=== PATIENT | female | born 1990 | race Caucasian/White ===

== ENCOUNTER 2016-10-03 04:09 | Emergency (ER) | payer OTHER ==
--- NOTE | 2016-10-03 06:21 | EDDOCDS ---
Physician Documentation [facility] Name: Barbara Almaraz Age: 26 yrs Sex: Female : 1990 Arrival Date: 10/03/2016 Time: 04:09 Bed [facility] Private MD: Duane Donovan Disposition: 10/03/16 05:31 Discharged to Home/Self Care. Impression: Acute stress reaction. - Condition is Stable. - Discharge Instructions: Helping Someone Who is Suicidal, Panic Attacks, Self-Destructive Behavior, Anger Management, Panic Attacks, [id number]. - Medication Reconciliation, Local Pharmacy Hours form. - Follow up: Duane Donovan; When: Call to arrange an appointment; Reason: Continuance of care. - Problem is an acute exacerbation. - Symptoms have improved. Historical: - Allergies: No known drug Allergies; - Home Meds: 1. Ambien 5 mg Oral tab nightly 2. Humalog 100 unit/mL Sub-Q soln sliding scale with meals 3. Lantus 100 unit/mL Sub-Q soln 25 units nightly 4. Xanax 0.5 mg Oral tab 1 tab four times a day - PMHx: Anxiety; Depression; Diabetes - IDDM: uncontrolled; Panic Attacks; - PSHx: ; - Social history: Smoking status: Patient states was never smoker of tobacco. No barriers to communication noted, The patient speaks fluent Belgian, Speaks appropriately for age. - Family history: Not pertinent. - : The pt / caregiver states he / she is not on anticoagulants. Home medication list is obtained from the patient. - Exposure Risk Screening:: None identified. SPOT WASHER: 10/03 04:15 LMP N/A - control method rw1 Vital Signs: 04:15 BP 155 / 104; Pulse 113; Resp 20; Temp 98.1(TE); Pulse Ox 98% on R/A; Weight 61.23 kg / rw1 134.99 lbs (R); Height 5 ft. 1 in. (154.94 cm) (R); Pain 0/10; 05:33 BP 146 / 87; Pulse 94; Resp 18; Temp 97.6(TE); Pulse Ox 98% on R/A; Pain 0/10; rw1 04:15 Body Mass Index 25.51 (61.23 kg, 154.94 cm) rw1 MDM: 05:12 Consult: Terrazzo Worker Helper ordered. mm11 06:08 Financial registration complete. hs2 06:14 [facility] Payment Agreement was scanned into [employer] and attached to record. hs2 Signatures: Jorge Lassiter LPN LPN rw1 Hector Lanier DO DO mm11 Landy Romero RN RN ko2 Hilaria Maurice, Reg Reg hs2 The chart was reviewed and I authenticate all verbal orders and agree with the evaluation and treatment provided.Attachments: 06:14 [facility] Payment Agreement hs2 MTDD
--- NOTE | 2016-10-03 06:21 | EDDOCDS ---
Nurse's Notes [facility] Name: Barbara Almaraz Age: 26 yrs Sex: Female : 1990 Arrival Date: 10/03/2016 Time: 04:09 Bed [facility] Private MD: Duane Donovan Diagnosis: Acute stress reaction Presentation: 10/03 04:21 Presenting complaint: Patient states: her is currently in the field for the ko2 last week and they took his phone and she can't contact him. She is feeling very overwhelmed with court for her daughter, her grandmother is dying in the hospital and lost their house so she was in an panic. When she was at [facility] she says they asked her if she was suicidal and she said no but sometimes she wishes it was all over and they said she was suicidal. Pt states she would never hurt herself shes just overwhelmed. Mental Health Triage Level: Level 1- Pt displays no suicidal or homicidal ideations and does not appear to be a danger to self or others. Adult Sepsis Screening: The patient does not have new or worsening altered mentation. Patient's respiratory rate is less than 22. Systolic blood pressure is greater than 100. Patient has a qSOFA score of 0- Negative Sepsis Screen. Suicide/Homicide risk assessment- the patient denies having any suicidal and/or homicidal ideations and does not present with any other emotional, behavioral or mental health complaints. Status: The patient is a dependent. Transition of care: patient was not received from another setting of care. Care prior to arrival: See EMS report. 04:21 Acuity: FATIMAH Level 3 ko2 04:21 Method Of Arrival: Ambulance ko2 Triage Assessment: 04:28 General: Appears distressed, Behavior is anxious, cooperative. Pain: Denies pain. HIV ko2 screening NA for this visit Offered previously. The patient is triaged at the bedside. See Assessment in Nurses Notes section of ED record. Neurological: Level of Consciousness is awake, alert. Respiratory: No deficits noted. Breath sounds are clear bilaterally. Derm: Skin is normal. 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 Ambien 5 mg Oral tab nightly 2. Humalog 100 unit/mL Sub-Q soln sliding scale with meals 3. Lantus 100 unit/mL Sub-Q soln 25 units nightly 4. Xanax 0.5 mg Oral tab 1 tab four times a day - PMHx: Anxiety; Depression; Diabetes - IDDM: uncontrolled; Panic Attacks; - PSHx: ; - Social history: Smoking status: Patient states was never smoker of tobacco. No barriers to communication noted, The patient speaks fluent Congolese, Speaks appropriately for age. - Family history: Not pertinent. - : The pt / caregiver states he / she is not on anticoagulants. Home medication list is obtained from the patient. - Exposure Risk Screening:: None identified. Screenin:28 Screening information is obtained from the patient. Fall risk: No risks identified. ko2 Assistance ADL's: requires no assistance with activities of daily living. Abuse/DV Screen: The patient / caregiver reports he/she is: not in a situation that causes fear, pain or injury. Nutritional screening: No deficits noted. Advance Directives: Currently, there is no health care proxy. There is no active DNR order. There is no living will. There is no Power of Radio Machinist. home support is adequate. Assessment: 04:16 General: Appears distressed, Behavior is anxious, cooperative, pleasant, restless. rw1 Pain: Denies pain. Neurological: Level of Consciousness is awake, alert, obeys commands, Oriented to person, place, time. Respiratory: Airway is patent Respiratory effort is even, unlabored. Derm: Skin is pink, warm & dry. normal. 05:17 Reassessment: Patient appears in no apparent distress at this time. talking with PSA at rw1 this time, safety maintained will monitor.. 05:33 Reassessment: Patient appears in no apparent distress at this time. Patient denies pain rw1 at this time. Patient states feeling better. Patient states symptoms have improved. Vital Signs: 04:15 BP 155 / 104; Pulse 113; Resp 20; Temp 98.1(TE); Pulse Ox 98% on R/A; Weight 61.23 kg rw1 (R); Height 5 ft. 1 in. (154.94 cm) (R); Pain 0/10; 05:33 BP 146 / 87; Pulse 94; Resp 18; Temp 97.6(TE); Pulse Ox 98% on R/A; Pain 0/10; rw1 04:15 Body Mass Index 25.51 (61.23 kg, 154.94 cm) rw1 Vitals: 04:15 Log In Time N/A - ambulance arrival. rw1 ED Course: 04:09 Patient visited by Merline Smith, Plain Goods Hemmer. ml3 04:[address] [facility] ml3 04:10 Duane Donovan is Private Physician. ml3 04:10 Patient moved to [facility] ml3 04:15 Jorge Lassiter LPN is Primary Nurse. rw1 04:17 Patient visited by Rai Noble. tr 04:27 Triage Initiated ko2 04:29 The patient / caregiver is instructed regarding the plan of care and ED course. ko2 04:31 Patient visited by Rai Noble. tr 04:41 Hector Lanier DO is Attending Physician. mm11 04:41 Patient visited by Hector Lanier DO. mm11 04:49 Patient visited by Rai Noble. tr 04:58 Patient visited by Rai Noble. tr 05:12 Patient visited by Hector Lanier DO. mm11 05:15 Patient visited by Rai Noble. tr 05:31 Duane Donovan is Referral Physician. mm11 05:33 No IV's were initiated during this patient's visit. No procedures done that require rw1 assistance. 05:45 Patient visited by Rai Noble. tr 06:02 Patient visited by Rai Noble. tr 06:14 [facility] Payment Agreement was scanned into [employer] and attached to record. hs2 06:18 Patient name changed from Barbara\S\Kaylie\S\Hellinger\S\ to Barbara\S\Kaylie\S\Redday. EDMS 06:19 Patient visited by Rai Noble. tr Order Results: There are currently no results for this order. Outcome: 05:31 Discharge ordered by Provider. mm11 06:19 Discharge Assessment: Patient awake, alert and oriented x 3. No cognitive and/or rw1 functional deficits noted. Patient verbalized understanding of disposition instructions. patient administered narcotics - no. The following High Risk Discharge criteria are identified: None. Discharged to home ambulatory, with friend. Condition: stable Condition: improved. Discharge instructions given to patient, Instructed on discharge instructions, follow up and referral plans. Demonstrated understanding of instructions, Pt was receptive of discharge instructions/ teaching. No special radiology studies were completed. Property sent home with patient. 06:20 Patient left the ED. rw1 Signatures: Dispatcher [employer] EDMS Rai Noble, Merline, Plain Good[employer] Hemmer Unit ml3 Jorge Lassiter,REGISTERED DIETITIAN REGISTERED DIETITIAN rw1 Hector Lanier, DO mm11 Landy Romero,RN RN ko2 Hilaria Maurice, Reg Reg hs2 MTDD
--- NOTE | 2016-10-05 07:21 | EDDOCDS ---
Nurse's Notes [facility] Name: Barbara Klein Age: 26 yrs Sex: Female : 1990 Arrival Date: 10/03/2016 Time: 04:09 Bed [facility] Private MD: Duane Donovan Diagnosis: Acute stress reaction Presentation: 10/03 04:21 Presenting complaint: Patient states: her is currently in the field for the ko2 last week and they took his phone and she can't contact him. She is feeling very overwhelmed with court for her daughter, her grandmother is dying in the hospital and lost their house so she was in an panic. When she was at [place] she says they asked her if she was suicidal and she said no but sometimes she wishes it was all over and they said she was suicidal. Pt states she would never hurt herself shes just overwhelmed. Mental Health Triage Level: Level 1- Pt displays no suicidal or homicidal ideations and does not appear to be a danger to self or others. Adult Sepsis Screening: The patient does not have new or worsening altered mentation. Patient's respiratory rate is less than 22. Systolic blood pressure is greater than 100. Patient has a qSOFA score of 0- Negative Sepsis Screen. Suicide/Homicide risk assessment- the patient denies having any suicidal and/or homicidal ideations and does not present with any other emotional, behavioral or mental health complaints. Status: The patient is a dependent. Transition of care: patient was not received from another setting of care. Care prior to arrival: See EMS report. 04:21 Acuity: FATIMAH Level 3 ko2 04:21 Method Of Arrival: Ambulance ko2 Triage Assessment: 04:28 General: Appears distressed, Behavior is anxious, cooperative. Pain: Denies pain. HIV ko2 screening NA for this visit Offered previously. The patient is triaged at the bedside. See Assessment in Nurses Notes section of ED record. Neurological: Level of Consciousness is awake, alert. Respiratory: No deficits noted. Breath sounds are clear bilaterally. Derm: Skin is normal. 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 Ambien 5 mg Oral tab nightly 2. Humalog 100 unit/mL Sub-Q soln sliding scale with meals 3. Lantus 100 unit/mL Sub-Q soln 25 units nightly 4. Xanax 0.5 mg Oral tab 1 tab four times a day - PMHx: Anxiety; Depression; Diabetes - IDDM: uncontrolled; Panic Attacks; - PSHx: ; - Social history: Smoking status: Patient states was never smoker of tobacco. No barriers to communication noted, The patient speaks fluent [place], Speaks appropriately for age. - Family history: Not pertinent. - : The pt / caregiver states he / she is not on anticoagulants. Home medication list is obtained from the patient. - Exposure Risk Screening:: None identified. Screenin:28 Screening information is obtained from the patient. Fall risk: No risks identified. ko2 Assistance ADL's: requires no assistance with activities of daily living. Abuse/DV Screen: The patient / caregiver reports he/she is: not in a situation that causes fear, pain or injury. Nutritional screening: No deficits noted. Advance Directives: Currently, there is no health care proxy. There is no active DNR order. There is no living will. There is no Power of Radar Air Traffic Controller. home support is adequate. Assessment: 04:16 General: Appears distressed, Behavior is anxious, cooperative, pleasant, restless. rw1 Pain: Denies pain. Neurological: Level of Consciousness is awake, alert, obeys commands, Oriented to person, place, time. Respiratory: Airway is patent Respiratory effort is even, unlabored. Derm: Skin is pink, warm & dry. normal. 05:17 Reassessment: Patient appears in no apparent distress at this time. talking with PSA at rw1 this time, safety maintained will monitor.. 05:33 Reassessment: Patient appears in no apparent distress at this time. Patient denies pain rw1 at this time. Patient states feeling better. Patient states symptoms have improved. Mental Health Eval: 05:37 Mental health consult is initiated at 05:00. Status: The patient is a jl dependent. [facility] Behavioral Health: The patient is not an established patient of [facility] Behavioral Health. Referral Information: Evaluation referral is generated by [facility] ED. The patient was referred for evaluation because she was seen there with anxiety & friends reported that she had made comments regarding suicide, according to MD at [facility]. Subjective: The patients chief complaint is "I went there [[facility]] with chest pain, which in reality was probably a panic attack". Delusions are denied. Patient's mood is somewhat anxious, but otherwise appropriate. Hallucinations are denied. Patient was sent here after being seen in [facility] ED with anxiety. She also requested that MD there contact the [facility] to bring her home from [facility] in [place]. [facility] MD stated that patient denied SI throughout her time there, however a friend that was with her said that she'd made comments about suicide at some point during the day. With that information, MD insisted that she be transported here, regardless of her denial of SI Patient was found to be A+Ox3, calm, cooperative & easily engaged. She appeared, & admitted to be somewhat anxious, noting that this was a situation that she'd have preferred to avoid. She explained that her anxiety has been heightened in her 's absence, as her grandmother is dying in the hospital in [place] & she has been dealing with Family Court regarding her 3 y/o daughter (who is currently in her sister's custody). She describes having a poor relationship with her mother (who is also in poor health) & that her father is , which make her ability to cope with these stressors more difficult while her is away. She states that she has been working with her therapist on ways to better cope, & saw her less than a week ago. She states that during this training, her is not allowed to have his phone & she has thus been unable to correspond with him at all. She admitted that when extremely anxious & overwhelmed, she has made comments about suicide, although insists that they have been nothing more than comments. She denies ever having any plan or intent when she has used the word, "Suicide". She states that the friend who was with her at [facility] is a person who she has indeed said this too & believes that this is what set events in motion to send her here. She has continued to deny SI since arrival here & firmly contracts for her safety. She has contacted her 's chief's , who agreed to come & pick her up. She also agreed to keep in touch with her following D/C, although patient states that her sister is coming to stay with her for a while, effective later this morning. Mental Health history: anxiety, post-traumatic stress disorder, Mental Health Admissions: None. Current Outpatient Mental Health Services: Psychiatrist / Agency: [facility]. Therapist / Agency: [facility]. Current living environment is The patient currently lives with her . Patient presents to Emergency Department with the following symptoms within the past 2 weeks: anxiety, panic attacks. Substance abuse: Pt denies. Mental status exam: Patients appearance is appropriate, Patient's behavior is cooperative, Speech is normal. Affect is appropriate. Mood is anxious. Hallucinations are denied. Appetite is normal. Memory is good. Energy level is normal. Content of thought is normal. Thought process is intact. Cognitive level is oriented to person, place, time and situation Patient's insight is good. Judgement is fair. Rapport with interviewer is good. Suicidal Ideation is denied. Homicidal ideation is denied. Disposition: Medically cleared for disposition by Hector Lanier DO Psychiatric Consult is deferred per ED physician, Dr Lanier. The patient has a safe destination which is home with her 's leadership's . Vital Signs: 04:15 BP 155 / 104; Pulse 113; Resp 20; Temp 98.1(TE); Pulse Ox 98% on R/A; Weight 61.23 kg rw1 (R); Height 5 ft. 1 in. (154.94 cm) (R); Pain 0/10; 05:33 BP 146 / 87; Pulse 94; Resp 18; Temp 97.6(TE); Pulse Ox 98% on R/A; Pain 0/10; rw1 04:15 Body Mass Index 25.51 (61.23 kg, 154.94 cm) rw1 Vitals: 04:15 Log In Time N/A - ambulance arrival. rw1 ED Course: 04:09 Patient visited by Merline Smith, Hot Packer. ml3 04:09 Patient moved to Waiting ml3 04:10 Duane Donovan is Private Physician. ml3 04:10 Patient moved to [facility] ml3 04:15 Jorge Lassiter LPN is Primary Nurse. rw1 04:17 Patient visited by Rai Noble. tr 04:27 Triage Initiated ko2 04:29 The patient / caregiver is instructed regarding the plan of care and ED course. ko2 04:31 Patient visited by Rai Noble. tr 04:41 Hector Lanier DO is Attending Physician. mm11 04:41 Patient visited by Hector Lanier DO. mm11 04:49 Patient visited by Rai Noble. tr 04:58 Patient visited by Rai Noble. tr 05:12 Patient visited by Hector Lanier DO. mm11 05:15 Patient visited by Rai Noble. tr 05:31 Duane Donovan is Referral Physician. mm11 05:33 No IV's were initiated during this patient's visit. No procedures done that require rw1 assistance. 05:45 Patient visited by Rai Noble. tr 06:02 Patient visited by Rai Noble. tr 06:14 [facility] Payment Agreement was scanned into [employer] and attached to record. hs2 06:18 Patient name changed from Barbara\\S\\Kaylie\\S\\Hellinger\\S\\ to Barbara\\S\\Kaylie\\S\\Redday. EDMS 06:19 Patient visited by Rai Noble. tr 12:15 T-Sheet-- Draft Copy was scanned into [employer] and attached to record. gb 12:45 PCR was scanned into [employer] and attached to record. gb Order Results: There are currently no results for this order. Outcome: 05:31 Discharge ordered by Provider. mm11 06:19 Discharge Assessment: Patient awake, alert and oriented x 3. No cognitive and/or rw1 functional deficits noted. Patient verbalized understanding of disposition instructions. patient administered narcotics - no. The following High Risk Discharge criteria are identified: None. Discharged to home ambulatory, with friend. Condition: stable Condition: improved. Discharge instructions given to patient, Instructed on discharge instructions, follow up and referral plans. Demonstrated understanding of instructions, Pt was receptive of discharge instructions/ teaching. No special radiology studies were completed. Property sent home with patient. 06:20 Patient left the ED. rw1 Signatures: Dispatcher [employer] EDMS Gagandeep Bonlila PSA PSA Cecilia Todd, Reg Reg gb Rai Noble tr Merline Smith, Hot Packer Unit ml3 Jorge Lassiter LPN LPN rw1 Hector Lanier DO DO mm11 Landy Romero RN RN ko2 Hilaria Maurice, Reg Reg hs2 Chart Complete MTDD
--- NOTE | 2016-10-05 07:21 | EDDOCDS ---
Physician Documentation [facility] Name: Barbara Klein Age: 26 yrs Sex: Female : 1990 Arrival Date: 10/03/2016 Time: 04:09 Bed [facility] MD: Duane Donovan Disposition: 10/03/16 05:31 Discharged to Home/Self Care. Impression: Acute stress reaction. - Condition is Stable. - Discharge Instructions: Helping Someone Who is Suicidal, Panic Attacks, Self-Destructive Behavior, Anger Management, Panic Attacks, [id number]. - Medication Reconciliation, Local Pharmacy Hours form. - Follow up: Duane Donovan; When: Call to arrange an appointment; Reason: Continuance of care. - Problem is an acute exacerbation. - Symptoms have improved. Historical: - Allergies: No known drug Allergies; - Home Meds: 1. Ambien 5 mg Oral tab nightly 2. Humalog 100 unit/mL Sub-Q soln sliding scale with meals 3. Lantus 100 unit/mL Sub-Q soln 25 units nightly 4. Xanax 0.5 mg Oral tab 1 tab four times a day - PMHx: Anxiety; Depression; Diabetes - IDDM: uncontrolled; Panic Attacks; - PSHx: ; - Social history: Smoking status: Patient states was never smoker of tobacco. No barriers to communication noted, The patient speaks fluent [place]er, Speaks appropriately for age. - Family history: Not pertinent. - : The pt / caregiver states he / she is not on anticoagulants. Home medication list is obtained from the patient. - Exposure Risk Screening:: None identified. 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 1 in. (154.94 cm) (R); Pain 0/10; 05:33 BP 146 / 87; Pulse 94; Resp 18; Temp 97.6(TE); Pulse Ox 98% on R/A; Pain 0/10; rw1 04:15 Body Mass Index 25.51 (61.23 kg, 154.94 cm) rw1 MDM: 05:12 Consult: Threshing Machine Operator ordered. mm11 06:08 Financial registration complete. hs2 06:14 [facility] Payment Agreement was scanned into [employer] and attached to record. hs2 12:15 T-Sheet-- Draft Copy was scanned into [employer] and attached to record. gb 12:45 PCR was scanned into [employer] and attached to record. gb Signatures: Cecilia Pretty, Reg Reg gb Jorge Lassiter LPN LPN rw1 Hector Lanier, DO DO mm11 Landy Romero,PHYLICIA RN ko2 Hilaria Maurice, Reg Reg hs2 The chart was reviewed and I authenticate all verbal orders and agree with the evaluation and treatment provided.Attachments: 06:14 [facility] Payment Agreement hs2 12:15 T-Sheet-- Draft Copy gb Chart Complete MTDD
--- NOTE | 2016-10-05 07:21 | EDDOCDS ---
Physician Documentation [facility] Name: Barbara Klein Age: 26 yrs Sex: Female : 1990 Arrival Date: 10/03/2016 Time: 04:[address] [facility] MD: Duane Donovan Disposition: 10/03/16 05:31 Discharged to Home/Self Care. Impression: Acute stress reaction. - Condition is Stable. - Discharge Instructions: Helping Someone Who is Suicidal, Panic Attacks, Self-Destructive Behavior, Anger Management, Panic Attacks, [id number]. - Medication Reconciliation, Local Pharmacy Hours form. - Follow up: Duane Donovan; When: Call to arrange an appointment; Reason: Continuance of care. - Problem is an acute exacerbation. - Symptoms have improved. Historical: - Allergies: No known drug Allergies; - Home Meds: 1. Ambien 5 mg Oral tab nightly 2. Humalog 100 unit/mL Sub-Q soln sliding scale with meals 3. Lantus 100 unit/mL Sub-Q soln 25 units nightly 4. Xanax 0.5 mg Oral tab 1 tab four times a day - PMHx: Anxiety; Depression; Diabetes - IDDM: uncontrolled; Panic Attacks; - PSHx: ; - Social history: Smoking status: Patient states was never smoker of tobacco. No barriers to communication noted, The patient speaks fluent [place], Speaks appropriately for age. - Family history: Not pertinent. - : The pt / caregiver states he / she is not on anticoagulants. Home medication list is obtained from the patient. - Exposure Risk Screening:: None identified. 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 1 in. (154.94 cm) (R); Pain 0/10; 05:33 BP 146 / 87; Pulse 94; Resp 18; Temp 97.6(TE); Pulse Ox 98% on R/A; Pain 0/10; rw1 04:15 Body Mass Index 25.51 (61.23 kg, 154.94 cm) rw1 MDM: 05:12 Consult: Scaler ordered. mm11 06:08 Financial registration complete. hs2 06:14 [facility] [place] was scanned into [employer] and attached to record. hs2 12:15 T-Sheet-- Draft Copy was scanned into [employer] and attached to record. gb 12:45 PCR was scanned into [employer] and attached to record. gb Signatures: Cecilia Pretty, Reg Reg gb Jorge Lassiter LPN LPN rw1 Hector Lanier, DO DO mm11 Landy Romero,PHYLICIA RN ko2 Hilaria Maurice, Reg Reg hs2 The chart was reviewed and I authenticate all verbal orders and agree with the evaluation and treatment provided.Attachments: 06:14 [facility] [place] hs2 12:15 T-Sheet-- Draft Copy gb Chart Complete MTDD
== END 2016-10-03 06:20 | disposition home or self-care (01) ==
LOC: M ED 04:09
DX: F43.9 Reaction to severe stress, unspecified (principal); F32.9 Major depressive disorder, single episode, unspecified; E11.9 Type 2 diabetes mellitus without complications; F41.0 Panic disorder [episodic paroxysmal anxiety]; Z79.4 Long term (current) use of insulin; Z79.899 Other long term (current) drug therapy

== ENCOUNTER → 2019-02-02 | Outpatient (REF) | payer OTHER ==
[2019-02-02 18:57] LABS: CHLAMYDIA DNA AMPLIFICATION NEGATIVE (NEGATIVE); GC DNA AMPLIFICATION NEGATIVE (NEGATIVE)
== END ==
LOC: M LAB REF 10:04
PROVIDERS: ATTEND Physician Assistant
DX: R30.0 Dysuria (principal)

== ENCOUNTER → 2019-02-19 | Outpatient (CLI) | payer OTHER ==
[2019-02-19 17:40] LABS: HEMOGLOBIN A1c 8.9 %
[2019-02-19 18:58] LABS: ALBUMIN 3.5 GM/DL (3.2-5.2); BLOOD UREA NITROGEN 8 MG/DL (7-18); CALCIUM LEVEL 9.3 MG/DL (8.5-10.1); CARBON DIOXIDE LEVEL 21 MEQ/L (21-32); CHLORIDE LEVEL 107 MEQ/L (98-107); CREATININE FOR GFR 0.78 MG/DL (0.55-1.30); GLOMERULAR FILTRATION RATE > 60.0 (>60); GLUCOSE, FASTING 465 MG/DL (70-100); PHOSPHORUS LEVEL 3.6 MG/DL (2.5-4.9); POTASSIUM SERUM 4.8 MEQ/L (3.5-5.1); SODIUM LEVEL 139 MEQ/L (136-145)
== END ==
LOC: M WUC 14:45
PROVIDERS: ATTEND Physician Assistant
DX: E11.9 Type 2 diabetes mellitus without complications (principal)

== ENCOUNTER → 2019-09-19 | Outpatient (REF) | payer MEDICAID, OTHER ==
[2019-09-19 12:19] LABS: BLOOD UREA NITROGEN 21 MG/DL (7-18); CALCIUM LEVEL 9.1 MG/DL (8.5-10.1); CARBON DIOXIDE LEVEL 21 MEQ/L (21-32); CHLORIDE LEVEL 109 MEQ/L (98-107); CREATININE FOR GFR 0.74 MG/DL (0.55-1.30); GLOMERULAR FILTRATION RATE > 60.0 (>60); GLUCOSE, FASTING 299 MG/DL (70-100); POTASSIUM SERUM 4.4 MEQ/L (3.5-5.1); SODIUM LEVEL 138 MEQ/L (136-145)
[2019-09-19 12:52] LABS: HEMOGLOBIN A1c 8.4 %
== END ==
LOC: M SFHCPLAZ 10:04
PROVIDERS: ATTEND Family Medicine
DX: E10.9 Type 1 diabetes mellitus without complications (principal)

== ENCOUNTER 2019-10-07 14:45 | Outpatient (RCR) | payer OTHER | END 2019-10-17 | LOC: M PT 14:45 | PROVIDERS: ATTEND Family Medicine | DX: M54.5 Low back pain (principal); Z98.1 Arthrodesis status; M25.551 Pain in right hip; Z89.201 Acquired absence of right upper limb, unspecified level; M25.561 Pain in right knee ==

== ENCOUNTER → 2020-01-30 | Outpatient (CLI) | payer OTHER ==
--- NOTE | 2020-01-30 15:34 | REPPI ---
HAND: REASON: Pain. No trauma. No priors. FINDINGS: The joint spaces are symmetric and relatively well maintained. There is no evidence of acute fracture or destructive osseous lesion. IMPRESSION: Negative hand. Electronically Signed by Quinten Rinaldi DO 01/30/2020 04:00 P
--- NOTE | 2020-01-30 15:35 | REPPI ---
REASON: Pain. No trauma. No priors. FINDINGS: No acute fracture or destructive osseous lesion. Electronically Signed by Quinten Rinaldi DO 01/30/2020 04:00 P
== END ==
LOC: M PLAIMG 13:57
PROVIDERS: ATTEND Family Medicine
DX: M25.532 Pain in left wrist (principal); M25.542 Pain in joints of left hand

== ENCOUNTER 2020-05-14 13:00 | Outpatient (RCR) | payer OTHER | END 2020-05-17 | disposition home or self-care (01) | LOC: M PT 13:00 | PROVIDERS: ATTEND Family Medicine | DX: Z98.1 Arthrodesis status (principal); M54.5 Low back pain; M25.551 Pain in right hip; Z89.201 Acquired absence of right upper limb, unspecified level; M25.561 Pain in right knee ==

== ENCOUNTER → 2020-07-20 | Outpatient (REF) | payer OTHER ==
[2020-07-20 16:18] LABS: BLOOD UREA NITROGEN 15 MG/DL (7-18); CALCIUM LEVEL 9.4 MG/DL (8.5-10.1); CARBON DIOXIDE LEVEL 27 MEQ/L (21-32); CHLORIDE LEVEL 104 MEQ/L (98-107); CREATININE FOR GFR 0.61 MG/DL (0.55-1.30); GLOMERULAR FILTRATION RATE > 60.0 (>60); GLUCOSE, FASTING 210 MG/DL (70-100); POTASSIUM SERUM 4.7 MEQ/L (3.5-5.1); SODIUM LEVEL 135 MEQ/L (136-145)
[2020-07-20 16:29] LABS: MALB URINE SIEMENS 23.2 MG/L; MAU/CREAT RATIO 19.6 MCG/MG (0.0-30.0)
== END ==
LOC: M PLALAB 11:47
PROVIDERS: ATTEND Family Medicine
DX: E10.9 Type 1 diabetes mellitus without complications (principal)